=== PATIENT | female | born 1995 | race Caucasian/White ===

== ENCOUNTER 2021-11-13 10:40 | Emergency (ER) | payer OTHER ==
[~2021-11-13] VITALS: Ht 157.5 cm; Wt 77.3 kg
[2021-11-13 10:51] VITALS: TEMP 98.3
[2021-11-13] MEDS ORDERED: FLEXERIL 1010 MG/TAB PO (12:07)
[2021-11-13 12:18] VITALS: BP 107/62; PULSE 68
== END 2021-11-13 12:18 | disposition home or self-care (01) ==
LOC: COL.ER 10:40
DX: S16.1XXA Strain of muscle, fascia and tendon at neck level, initial encounter (principal); V49.40XA Driver injured in collision with unspecified motor vehicles in traffic accident, initial encounter
CPT/HCPCS: J1885